=== PATIENT | female | born 1990 | race Caucasian/White ===

== ENCOUNTER 2024-08-03 13:31 | Emergency (ER) | payer OTHER ==
[~2024-08-03] VITALS: Ht 165.1 cm; Wt 91.2 kg
[2024-08-03] MEDS ORDERED: OLANZAPINE 10 MG VIAL IM ONE ×2 (14:17→22:19)
[2024-08-03] MEDS: OLANZAPINE 10 MG VIAL IM ONE ×2 (14:27→22:26)
[2024-08-03 14:31] LABS: CALCIUM, SERUM 9.6 mg/dL (8.5-10.1); CARBON DIOXIDE 22 mmol/L (21-32); CHLORIDE 105 mmol/L (98-107); CREATININE 0.8 mg/dL (0.6-1.3); GLUCOSE 129 mg/dL (74-106); POTASSIUM 3.4 mmol/L (3.5-5.1); SODIUM SERUM 138 mmol/L (136-145); UREA NITROGEN, BLOOD 11 mg/dL (7-18)
[2024-08-03 14:37] LABS: ALANINE AMINOTRANSFERASE 18 U/L (12-78); ALBUMIN 4.1 g/dL (3.4-5.0); ALKALINE PHOSPHATASE 101 U/L (46-116); ASPARTATE AMINOTRANSFERASE 14 U/L (15-37); BILIRUBIN,DIRECT 0.2 mg/dL (0.0-0.2); BILIRUBIN,TOTAL 1.2 mg/dL (0.2-1.0); TOTAL PROTEIN, SERUM 8.7 g/dL (6.4-8.2)
[2024-08-03 14:38] LABS: ACETAMINOPHEN <10 ug/ml (10-30); ALCOHOL, BLOOD < 3 mg/dL (0-10); SALICYLATE 1.2 mg/dL (2.8-20.0)
[2024-08-03 15:08] LABS: BASOPHILS # (AUTO) 0.1 K/uL (0.0-0.2); BASOPHILS % (AUTO) 0.6 % (0.0-2.0); EOSINOPHILS % (AUTO) 0.3 % (0.0-6.0); HEMATOCRIT 43 % (33-45); HEMOGLOBIN 14.3 g/dL (11.5-14.8); LYMPHOCYTES # (AUTO) 2.1 K/uL (0.8-4.8); LYMPHOCYTES % (AUTO) 13.3 % (20.0-44.0); MEAN CORPUSCULAR HEMOGLOBIN 29 PG (26.0-33.0); MEAN CORPUSCULAR HGB CONC 33 g/dl (31.0-36.0); MEAN CORPUSCULAR VOLUME 86 fL (82-100); MONOCYTES # (AUTO) 0.9 K/uL (0.1-1.30); MONOCYTES % (AUTO) 5.7 % (2.0-12.0); NEUTROPHILS # (AUTO) 12.6 K/uL (1.8-8.9); NEUTROPHILS % (AUTO) 80.1 % (43.0-81.0); PLATELET COUNT (AUTO) 340 K/uL (150-450); RED BLOOD CELL COUNT(AUTO) 4.96 MIL/uL (4.0-5.2); RED CELL DISTRIBUTION WIDTH 14.5 % (11.5-15.0); WHITE BLOOD COUNT (AUTO) 15.7 K/uL (4.3-11.0)
[2024-08-03 15:14] LABS: AMPHETAMINE, URINE NEGATIVE (NEGATIVE); BARBITURATE, URINE NEGATIVE (NEGATIVE); BENZODIAZEPINE, URINE NEGATIVE (NEGATIVE); CANNABINOID, URINE NEGATIVE (NEGATIVE); COCCAINE, URINE NEGATIVE (NEGATIVE); OPIATE, URINE NEGATIVE (NEGATIVE); PHENCYCLIDINE SCREEN,URINE NEGATIVE (NEGATIVE)
[2024-08-03 15:19] LABS: APPEARANCE,URINE CLEAR (CLEAR); BILIRUBIN,URINE NEGATIVE (NEGATIVE); BLOOD, URINE NEGATIVE Ery/uL (NEGATIVE); COLOR,URINE YELLOW (YELLOW); KETONES,URINE TRACE mg/dL (NEGATIVE); LEUKOCYTE ESTERASE ,URINE NEGATIVE (NEGATIVE); NITRITE, URINE NEGATIVE (NEGATIVE); PH,URINE 5.5 (5.0-8.0); PROTEIN,URINE TRACE mg/dl (NEGATIVE); UGLUCOSE TRACE mg/dL (NEGATIVE); UROBILINOGEN,URINE 0.2 EU/dL (0.2)
[2024-08-03 16:16] LABS: ADD URINE CULTURE NO; BACTERIA,URINE None seen /HPF (None Seen); MUCUS,URINE Many /LPF (None Seen); RBC,URINE 0-2 /HPF (0-2); URINE AMORPHOUS URATE Few /HPF (None Seen); WBC,URINE 0-2 /HPF (0-3)
[2024-08-03] MEDS ORDERED: LORAZEPAM INJ 2 MG/ML VIAL ONE (19:25)
[2024-08-03] MEDS: LORAZEPAM INJ 2 MG/ML VIAL IM ONE (19:29)
[2024-08-03 23:18] LABS: LYMPHOCYTES % (MANUAL) 12 % (16-48); MONOCYTES % (MANUAL) 5 % (0-11.0); NEUTROPHILS % (MANUAL) 83 (42-76); PLATELET ESTIMATE ADEQUATE
[2024-08-04] MEDS ORDERED: OLANZAPINE 10 MG VIAL IM ONE (11:28)
[2024-08-04] MEDS: OLANZAPINE 10 MG VIAL IM ONE (11:30)
[2024-08-04] MEDS ORDERED: diphenhydrAMINE HCL 50 MG/ML VIAL ONE (12:14)
[2024-08-04] MEDS ORDERED: LORAZEPAM INJ 2 MG/ML VIAL ONE (12:15)
[2024-08-04] MEDS: diphenhydrAMINE HCL 50 MG/ML VIAL IM ONE (12:20)
[2024-08-04] MEDS: LORAZEPAM INJ 2 MG/ML VIAL IM ONE (12:20)
[2024-08-04] MEDS ORDERED: HALOPERIDOL LACTATE INJ 5 MG/ML VIAL ONE (14:06)
[2024-08-04] MEDS ORDERED: BENZTROPINE MESYLATE (2MG/2ML) 2 MG/2 ML AMPUL ONE (14:06)
[2024-08-04] MEDS: BENZTROPINE MESYLATE (2MG/2ML) 2 MG/2 ML AMPUL IM ONE (14:13)
[2024-08-04] MEDS: HALOPERIDOL LACTATE INJ 5 MG/ML VIAL IM ONE (14:13)
[2024-08-04] MEDS: DIVALPROEX SODIUM 250 MG TABLET.DR PO SCH (16:56)
[2024-08-05] MEDS ORDERED: OLANZAPINE 10 MG VIAL IM ONE ×2 (03:03→08:40)
[2024-08-05] MEDS ORDERED: LORAZEPAM INJ 2 MG/ML VIAL ONE ×2 (03:03→08:32)
[2024-08-05] MEDS ORDERED: diphenhydrAMINE HCL 50 MG/ML VIAL ONE ×2 (03:03→08:40)
[2024-08-05] MEDS: LORAZEPAM INJ 2 MG/ML VIAL IM PRN (03:15)
[2024-08-05] MEDS: diphenhydrAMINE HCL 50 MG/ML VIAL IM ONE ×2 (03:15→08:46)
[2024-08-05] MEDS: OLANZAPINE 10 MG VIAL IM ONE ×2 (03:15→08:47)
[2024-08-05] MEDS: LORAZEPAM INJ 2 MG/ML VIAL IM ONE (08:38)
[2024-08-05] MEDS ORDERED: BENZTROPINE MESYLATE (2MG/2ML) 2 MG/2 ML AMPUL ONE ×2 (12:06→20:07)
[2024-08-05] MEDS ORDERED: HALOPERIDOL LACTATE INJ 5 MG/ML VIAL ONE ×2 (12:06→20:07)
[2024-08-05] MEDS: BENZTROPINE MESYLATE (2MG/2ML) 2 MG/2 ML AMPUL IM ONE ×2 (12:20→20:16)
[2024-08-05] MEDS: HALOPERIDOL LACTATE INJ 5 MG/ML VIAL IM ONE ×2 (12:20→20:16)
[2024-08-05] MEDS ORDERED: DIVALPROEX SODIUM 500 MG TABLET.DR PO ONE (12:34)
[2024-08-05] MEDS: DIVALPROEX SODIUM 500 MG TABLET.DR PO ONE (12:39)
[2024-08-05] MEDS: OLANZAPINE ZYDIS 5 MG TAB.RAPDIS PO SCH (17:00)
[2024-08-06] MEDS ORDERED: DIVALPROEX SODIUM 250 MG TABLET.DR PO ONE ×2 (09:35→13:57)
[2024-08-06] MEDS ORDERED: OLANZAPINE 5 MG TABLET ONE (09:35)
[2024-08-06] MEDS ORDERED: LORAZEPAM INJ 2 MG/ML VIAL ONE (09:57)
[2024-08-06] MEDS: LORAZEPAM INJ 2 MG/ML VIAL IM ONE (10:00)
[2024-08-06 13:30] VITALS: BP 126/74; TEMP 98.2; O2SAT 97
[2024-08-06] MEDS: BENZTROPINE MESYLATE (2MG/2ML) 2 MG/2 ML AMPUL IM ONE (16:18)
[2024-08-06] MEDS: HALOPERIDOL LACTATE INJ 5 MG/ML VIAL IM ONE (16:18)
== END 2024-08-06 16:30 ==
LOC: ER 14:11
DX: F23 Brief psychotic disorder (principal); R10.2 Pelvic and perineal pain; Z20.822 Contact with and (suspected) exposure to COVID-19
CPT/HCPCS: 99285; 96372 ×4; 70450; 85025; 80048; 80076; 85007; 81001; 36415; 84702; 87426; 80143; 80320; 80307; J2060 ×5; J3490 ×5; J0515 ×3; J1200 ×3; J1630 ×3; G0480